=== PATIENT | male | born 1985 | race Caucasian/White ===

== ENCOUNTER 2019-12-02 11:21 | Emergency (ER) | payer OTHER ==
[~2019-12-02] VITALS: Ht 177.8 cm; Wt 127.0 kg
[~2019-12-02 11:21] MED LIST: FLEXERIL OR; FLEXERIL PO; FLEXERIL10 MG PO; LORTAB 10-325 M1 TAB PO; LORTAB5 OR; LORTAB5 PO; NAPROSYN500 MG PO; PENICILLN VK500 M1 OR; PREVACID30 M2 OR; ULTRAM50 MG OR
[2019-12-02] MEDS ORDERED: CYCLOBENZAPR5 MG PO (13:24)
[2019-12-02 13:50] VITALS: BP 135/92
== END 2019-12-02 13:50 | disposition home or self-care (01) | DRG 552 ==
LOC: ED 11:21
DX: M54.41 Lumbago with sciatica, right side (principal)